=== PATIENT | male | born 2000 | race Hispanic/Latino ===

== ENCOUNTER 2022-02-14 22:08 | Emergency (ER) | payer OTHER ==
[~2022-02-14] VITALS: Ht 172.7 cm; Wt 77.7 kg
[2022-02-14 22:09] VITALS: BP 140/81
[2022-02-15] MEDS ORDERED: diphenhydrAMINE 25MG CAP PO ONE (00:05)
== END 2022-02-15 00:30 | disposition home or self-care (01) ==
LOC: M ED 22:08
DX: S60.562A Insect bite (nonvenomous) of left hand, initial encounter (principal); W57.XXXA Bitten or stung by nonvenomous insect and other nonvenomous arthropods, initial encounter; Y92.89 Other specified places as the place of occurrence of the external cause